=== PATIENT | female | born 1985 | race Caucasian/White ===

== ENCOUNTER 2024-03-17 06:00 | Day surgery (SDC) | payer BC ==
[~2024-03-17] VITALS: Ht 177.8 cm; Wt 88.4 kg
[2024-03-17] VITALS (16 sets, daily range): BP systolic 96–124; BP diastolic 59–87
[2024-03-17] MEDS ORDERED: CeFAZolin Sodium 2,000 MG in NS 100 ML IV SCH (06:15)
[2024-03-17] MEDS ORDERED: Lactated Ringer's 1,000 ML IV SCH ×2 (06:15→09:55)
[2024-03-17] MEDS ORDERED: CeFAZolin Sodium 2,000 MG VIAL ONE (06:19)
--- NOTE | 2024-03-17 06:38 | NUR ---
Ambulatory in Day Surgery History, Chart, Medications and Allergies reviewed before start of procedure. Pre-Op teaching done. Pt verbalizes understanding. Patient States Post-Procedure ride home has been arranged.
[2024-03-17] MEDS ORDERED: FentaNYL Citrate 50 MCG/ML 5 ML Injection ONE (06:56)
[2024-03-17] MEDS ORDERED: propofoL 20 ML IV ONE ×9 (06:56→09:04)
[2024-03-17] MEDS ORDERED: Ondansetron HCl 2 MG / ML 2ML Vial ONE (06:57)
[2024-03-17] MEDS ORDERED: Dexamethasone Sod Phos 10 MG/ML 1ML VIAL ONE (06:57)
[2024-03-17] MEDS ORDERED: Rocuronium Bromide 10 MG/ML 5ML Injection IV ONE ×2 (06:57)
[2024-03-17] MEDS ORDERED: Ketorolac Tromethamine 30mg Vial ONE (06:57)
[2024-03-17] MEDS ORDERED: Lidocaine HCl 2% 20 ML MDV ONE (07:00)
[2024-03-17] MEDS ORDERED: Bupivacaine 0.5% W/EPI 1:200000 SDV 30 ML Vial ONE (07:15)
[2024-03-17] MEDS ORDERED: Sugammadex Sodium 200 MG/2ML SDV (100 MG/ML) ONE (09:05)
[2024-03-17] MEDS ORDERED: FLU VACC TS2024-25(6MOS UP)/PF 45 MCG/0.5 ML SYRINGE IM SCH (09:50)
[2024-03-17] MEDS ORDERED: DiphenhydrAMINE HCL 25 MG Cap PO PRN (09:50)
[2024-03-17] MEDS ORDERED: Ibuprofen 400 MG Tab PO PRN (09:50)
[2024-03-17] MEDS ORDERED: FentaNYL Citrate 50 MCG/ML 2 ML Injection ONE (09:50)
[2024-03-17] MEDS ORDERED: HYDROmorphone HCl/Pf 1MG SYR ONE (09:50)
[2024-03-17] MEDS ORDERED: FentaNYL Citrate 50 MCG/ML 2 ML Injection IV PRN (09:50)
[2024-03-17] MEDS ORDERED: HYDROcodone 5-APAP 325 TAB PO PRN (09:50)
[2024-03-17] MEDS ORDERED: Ondansetron HCl 2 MG / ML 2ML Vial IV PRN (09:55)
[2024-03-17] MEDS ORDERED: OxyCODONE HCL 5 MG TAB PO PRN (09:55)
[2024-03-17] MEDS ORDERED: Acetaminophen 325 MG TABLET PO PRN (09:55)
[2024-03-17] MEDS ORDERED: Ketorolac Tromethamine 30mg Vial IV PRN (10:05)
--- NOTE | 2024-03-17 11:20 | NUR ---
POST OP NOTE PT TO ROOM 216 FROM PACU. PT IS AWAKE, ALERT, FOLLOWING COMMANDS. TRANSFERED PT TO BED FROM [facility] W/ SLIDE SHEET. [place] IN PLACE W/ STAT LOCK. VSS. PAIN IS TOLERABLE. NO NAUSEA. PT TOLERATING SNACKS AND PO FLUIDS. PAS IN PLACE. CALL LIGHT IN REACH.
[2024-03-17] MEDS ORDERED: Ketorolac Tromethamine 30mg Vial IV SCH (12:00)
[2024-03-17 12:45] LABS: BASOPHILS ABSOLUTE AUTO 0.02 K/mm3 (0.00-0.23); BASOPHILS PERCENT AUTO 0 % (0-2); EOSINOPHILS PERCENT AUTO 0 % (0-6); Hematocrit 38.3 % (33.0-51.0); Hemoglobin 12.9 g/dL (11.5-16.0); IMMATURE GRAN ABSOLUTE AUTO 0.05 K/mm3 (0.00-0.10); IMMATURE GRAN PERCENT AUTO 0 % (0-1); LYMPHOCYTES ABSOLUTE AUTO 0.41 K/mm3 (0.84-5.20); LYMPHOCYTES PERCENT AUTO 3 % (21-46); MONOCYTES ABSOLUTE AUTO 0.12 K/mm3 (0.16-1.47); MONOCYTES PERCENT AUTO 1 % (4-13); Mean Corpuscular HGB 30.9 pg (26.0-34.0); Mean Corpuscular HGB Conc 33.7 g/dL (31.5-36.5); Mean Corpuscular Volume 92 fL (80-100); Mean Platelet Volume 10.5 fL (9.1-12.4); NEUTROPHILS ABSOLUTE AUTO 12.66 K/mm3 (1.96-9.15); NEUTROPHILS PERCENT AUTO 95 % (41-73); Platelet Count 201 K/mm3 (150-400); RDW Coefficient Variation 14.7 % (11.7-14.2); RDW Standard Deviation 49.8 fL (35.1-46.3); Red Blood Cell Count 4.17 M/mm3 (3.80-5.20); White Blood Cell Count 13.26 K/mm3 (4.00-11.30)
[2024-03-17] MEDS ORDERED: HYDR1TAB94 PO (15:24)
[2024-03-17] MEDS ORDERED: MOTRIN IB200 MG PO (15:25)
--- NOTE | 2024-03-17 15:30 | NUR ---
DISCHARGE NOTE PT IS POD0 FOR HYSTER W/ DR. ALAMO. PT IS ALERT, RESPONSIVE, AMBULATING INDEPENDENTLY. TOLERATING PO FLUIDS, PO REG DIET, PAIN IS TOLERABLE W/ PAIN MEDS PER EMAR, VOIDING APPROPRIATELY. PT GIVEN HARD SCRIPT FOR PAIN MEDS, COPY IN CHART. DRESSINGS X2 INTACT, UMBILICAL DRESSING W/ SCANT SS DRAINAGE, REINFORCED W/ GAUZE AND TAPE. DISCHARGE INSTRUCTIONS REVIEWED W/ PT, COPY GIVEN. VSS. PT STATES SHE IS HYPOTENSIVE AT BASELINE AND DENIES DIZZINESS. PT DC'D VIA WC IN STABLE CONDITION TO PRIVATE RIDE HOME W/ ALL BELONGINGS.
== END 2024-03-17 15:35 | disposition home or self-care (01) ==
LOC: ORSCMMR 06:00 → ORD 07:30 → ORSCMMR 07:30 → SURS 10:55 → ORSCMMR 15:35
PROVIDERS: Obstetrics & Gynecology
PROC: 0UT9FZZ Resection of Uterus, Via Natural or Artificial Opening With Percutaneous Endoscopic Assistance (ICD-10-PCS; principal; 2024-03-17 07:30)
PROC: 0UT7FZZ Resection of Bilateral Fallopian Tubes, Via Natural or Artificial Opening With Percutaneous Endoscopic Assistance (ICD-10-PCS; principal; 2024-03-17 07:30)
DX: N92.0 Excessive and frequent menstruation with regular cycle (principal); R10.2 Pelvic and perineal pain; D25.9 Leiomyoma of uterus, unspecified; N80.03 Adenomyosis of the uterus; Z87.891 Personal history of nicotine dependence; N83.8 Other noninflammatory disorders of ovary, fallopian tube and broad ligament
CPT/HCPCS: 36415; 85025; 88307; A9270; J0690; J1100; J1171; J1885; J2405; J2704; J3010; J7120